=== PATIENT | female | born 2000 ===

== ENCOUNTER → 2024-06-18 09:30 | Outpatient (BNV) | payer BC, SELFPAY | PROVIDERS: Visit Provider Internal Medicine | DX: I47.10 Supraventricular tachycardia, unspecified (principal) | CPT/HCPCS: 93244 ==

== ENCOUNTER → 2024-06-18 10:00 | Outpatient (REF) | payer BC, SELFPAY ==
--- OUTSIDE RECORDS SUMMARY | 2024-06-20 17:47 | XMS_ITS | Encounter Summary ---
Author Organization [facility] Address [address] [place] [phone] Phone Care Team Providers Care Washer Cutter Name Role Phone Ly Soni MD Primary Care Provider + Reason for Visit * Reason Comments Med Refill Encounter Details Date Type Department Care Team ([facility] st Contact Info) Description 12/23/2021 Refill [facility] [address] [address] Ly Soni MD [address] [place] [address] Dysmenorrhea in adolescent; Acne vulgaris; Oral contraceptive pill surveillance Social History Tobacco Use Types Packs/Day Years Used Date Smoking Tobacco: Never Smokeless Tobacco: Never Alcohol Use Standard Drinks/Week Comments No 0 (1 standard drink = 0.6 oz pur e alcohol) Hunger/Food Answer Date Recorded In the last 12 months, did y ou or your family ever eat less than you felt you should because there wasn't enough money for food? No 12/08/2020 Stable Housing Answer Date Recorded Are you worried that in the next 2 months you may not have stable housing? No 12/08/2020 Transportation Concerns Answer Date Rec orded In the last 12 months, have you or your family ever had to go without healthcare because you didn't have a way to get there? No 12/08/2020 Hazards in Home Answer Date Recorded Think about the place you li ve. Do you have problems with any of the following? Pests (mice or roaches), mold, no/not working smoke detectors, water leaks, no window guards. No 2020 Financing Utilities Answer Date Recorde d In the last 12 months, has t he electric, gas, oil, or water company threatened to shut off your services in your home? No 12/08/2020 Safety at Home Answer Date Recorded Are you or your family worried about feeling saf e in your home? No 12/08/2020 Outside Support Answer Date Recorded Do you feel that you need mo re support from other people or programs to help you care for yourself or your family? No 12/08/2020 Understanding Health Concerns Answer Da te Recorded Do you need help understandi ng your or your child's healthcare needs (diagnosis, medications, plan, etc.)? No 12/08/2020 Financing Health Concerns Answer Date R ecorded In the last 12 months, was t here a time when your child needed to see a doctor or get medications or supplies but could not because of cost? No 12/08/2020 Missing School or Work Answer Date Ian rded Did you or your child miss s chool or work because of a health problem that could have been avoided? No 12/08/2020 Comments Unknown Sex and Gender Information Value Date Recorded Sex Assigned at Female 03/01/2023 9:26 AM EST Legal Sex Female 3:13 PM EDT Gender Identity Female 02/02/2023 2:55 PM EDT Sexual Orientation Bisexual 03/01/2023 9: 26 AM EST documented as of this encounter Plan of Treatment Not on file documented as of this encounter Visit Diagnoses Diagnosis Dysmenorrhea in adolescent Acne vulgaris Other acne Oral contraceptive pill surveillance documented in this encounter Care Teams Washer Cutter Relationship Specialty Start Date End Date Ly Soni MD [address] [place] [address] PCP - General 11/15/16 documented as of this encounter
--- OUTSIDE RECORDS SUMMARY | 2024-06-20 17:47 | XMS_ITS | Encounter Summary ---
Author Organization [facility] Address [address] [place] [address] Phone Care Team Providers Care Jewelry Appraiser Name Role Phone Ly Soni MD Primary Care Provider + Reason for Visit * Reason Comments Med Refill Encounter Details Date Type Department Care Team ([facility] st Contact Info) Description 01/18/2022 Refill [facility] [address] [address] Ly Soni MD [address] [place] [address] Dysmenorrhea in adolescent; Acne vulgaris; Oral contraceptive [...] AM EST documented as of this encounter Miscellaneous Notes * Telephone Encounter - Ly Soni MD - 01/18/2022 11:01 AM EDT Was given 84d with 3 refills <1m ago. documented in this encounter Plan of Treatment Not on file documented as of this encounter Visit Diagnoses Diagnosis Dysmenorrhea in adolescent Acne vulgaris Other acne Oral contraceptive pill surveillance documented in this encounter Care Teams Jewelry Appraiser Relationship Specialty Start Date End Date Ly Soni MD [address] [place] [address] PCP - General 11/15/16 documented as of this encounter
--- OUTSIDE RECORDS SUMMARY | 2024-06-20 17:47 | XMS_ITS | Encounter Summary ---
Author Organization [facility] Address [address] [place] [phone] Phone Care Team Providers Care Business Support Specialist Name Role Phone Ly Soni MD Primary Care Provider + Encounter Details Date Type Department Care Team (Late st Contact Info) Description 09/12/2016 Conversion Encounter [facility] [address] [address] Social History Tobacco Use Types Packs/Day Years Used Date Smoking Tobacco: Never Assessed Comments Unknown Sex and Gender Information Value Date Recorded Sex Assigned at Female 03/01/2023 9:26 AM EST Legal Sex Female 3:13 PM EDT Gender Identity Female 02/02/2023 2:55 PM EDT Sexual Orientation Bisexual 03/01/2023 9: 26 AM EST documented as of this encounter Plan of Treatment Not on file documented as of this encounter Visit Diagnoses Not on filedocumented in this encounter Care Teams Business Support Specialist Relationship Specialty Start Date End Date Ly Soni MD [address] [place] [address] PCP - General 11/15/16 documented as of this encounter
--- OUTSIDE RECORDS SUMMARY | 2024-06-20 17:47 | XMS_ITS | Encounter Summary ---
Author Organization [facility] Address [address] [place] [address] Phone Care Team Providers Care Automation Specialist Name Role Phone Ly Soni MD Primary Care Provider + Reason for Visit * Reason Onset Date Comments Med Refill 07/11/2021 Encounter Details Date Type Department Care Team ([facility] st Contact Info) Description 07/11/2021 Refill [facility] [address] [address] Ly Soni MD [address] [place] [address] Dysmenorrhea in adolescent; Acne vulgaris; Oral contraceptive [...] surveillance documented in this encounter Care Teams Automation Specialist Relationship Specialty Start Date End Date Ly Soni MD [address] [place] [phone] PCP - General 11/15/16 documented as of this encounter
--- OUTSIDE RECORDS SUMMARY | 2024-06-20 17:47 | XMS_ITS | Encounter Summary ---
Author Organization [facility] Address [address] [place] [phone] Phone Care Team Providers Care Traffic Signal Repairer Name Role Phone Ly Soni MD Primary Care Provider + Reason for Visit * Reason Comments Med Refill Encounter Details Date Type Department Care Team ([facility] st Contact Info) Description 12/23/2021 Refill [facility] [address] [address] Ly Soni MD [address] [place] [address] Dysmenorrhea in adolescent; Acne vulgaris; Oral contraceptive [...] Telephone Encounter - Ly Soni MD - 12/23/2021 10:34 AM EDT Will give single month Rx. LAst seen w[facility] 08/2020 and no visit scheduled. She is scheduled for a VV ocp check and will schedule WC as soon as possible. documented in this encounter Plan of Treatment Not on file documented as of this encounter Visit Diagnoses Diagnosis Dysmenorrhea in adolescent Acne vulgaris Other acne Oral contraceptive pill surveillance documented in this encounter Care Teams Traffic Signal Repairer Relationship Specialty Start Date End Date Ly Soni MD [address] [place] [address] PCP - General 11/15/16 documented as of this encounter
--- OUTSIDE RECORDS SUMMARY | 2024-06-20 17:47 | XMS_ITS | Encounter Summary ---
Author Organization [facility] Address [address] [place] [address] Phone Care Team Providers Care Engineer Technician Name Role Phone Ly Soni MD Primary Care Provider + Reason for Visit * Reason Comments Med Refill Encounter Details Date Type Department Care Team ([facility] st Contact Info) Description 08/07/2018 Refill [facility] [address] [address] Ly Soni MD [address] [place] [phone] Acne vulgaris Social History Tobacco Use Types Packs/Day Years Used Date Smoking Tobacco: Never Smokeless Tobacco: Never Alcohol Use Standard Drinks/Week Comments No 0 (1 standard drink = 0.6 oz pur e alcohol) Comments Unknown Sex and Gender Information Value Date Recorded Sex Assigned at Female 03/01/2023 9:26 AM EST Legal Sex Female 3:13 PM EDT Gender Identity Female 02/02/2023 2:55 PM EDT Sexual Orientation Bisexual 03/01/2023 9: 26 AM EST documented as of this encounter Miscellaneous Notes * Telephone Encounter - Ly Soni MD - 08/14/2018 10:56 AM EDT Had visit on 08/10. New Rx new OCP given at that time. * Telephone Encounter - Mandy Peres RN - 08/08/2018 11:56 AM EDT Appt scheduled for follow up for this Monday08/10/2018 * Telephone Encounter - Ly Soni MD - 08/07/2018 12:20 PM EDT Patient initially prescribed OCP in April for Acne. Was told to f/u in 3 mos. I have already donea single month refill after the initial 3mos. NEeds f/u at the office prior to wc in 8 weeks. documented in this encounter Plan of Treatment Not on file documented as of this encounter Visit Diagnoses Diagnosis Acne vulgaris Other acne documented in this encounter Care Teams Engineer Technician Relationship Specialty Start Date End Date Ly Soni MD [address] [place] [address] PCP - General 11/15/16 documented as of this encounter
--- OUTSIDE RECORDS SUMMARY | 2024-06-20 17:47 | XMS_ITS | Clinical Summary ---
Author Organization [facility] Address [address] [place] [phone] Phone Care Team Providers Care Warp Scouring Vat Tender Name Role Phone Ly Soni MD Primary Care Provider + Allergies No known active allergies Medications TAZORAC 0.1 % gel KIRK TO ACNE PRONE AREAS QOD. INCREASE TO D TOLERATED. 2 8 Active clindamycin 1 % lotionIndicatio ns:Acne vulgaris Apply topically 2 (two) times a day. Apply once or twice daily to affected areas of face and/or upper back. 60 mL 1 1 Active Active Problems Problem Noted Date Diagnosed Date Adjustment disorder with anxious mood 09/12/2018 Overview (09/12/2018): At risk (introvert, internal/external pressures, high-achieving but stressed about grades). - Considering seeing therapist - f/u in 1-2 months for mood check Assessment & Plan (03/01/2023 11:26 AM EST): Better overall. Still gest stressed with school but also learning some management skills. No therapist. Contracts for safety. PHQ still elevated and difficulty with sleep but not interested in therapist. Discussed calming/sleep winddown skills. Assessment & Plan (10/24/2018 4:27 PM EDT): HAs been doing ok recently, better in summer. High-achieving and takign self- imposed classes this summer. Discussed finding time to do things she likes - art and music. Making time for exercise, and making time for friends. She and mom not interested in therapist at this time but will continue to monitor kamran in the fall. Dysmenorrhea in adolescent 04/20/2018 Overview (04/20/2018): +Fhx endometriosis OCP initiated 04/20/2018 for acne and dysmen Assessment & Plan (05/26/2023 2:12 PM EST): Aygestin 5mg daily has helped, mostly period cessation, occ spotting, no cramping. Continue daily unchanged. F/u at 02/2024 Assessment & Plan (03/01/2023 9:25 AM EST): 05/2022 stopped ocp. Wants to restart something and would prefer not to get periods at all. Discussed aygestrin. F/u 3mos. Assessment & Plan (03/02/2022 10:39 AM EST): Now sprintec regularly no issues. Wants to continue. Assessment & Plan (12/08/2020 2:21 PM EDT): Is better when takes OCP regularly btu forgets frequently. dsicussed alternatives including iud and nexplanon. She wants to go with ocp another few months first. Reminded re daily disoing, setting alarms. Assessment & Plan (10/01/2019 7:35 AM EDT): Significantly better on OCP. No plan to change. Takes daily. Assessment & Plan (10/24/2018 4:26 PM EDT): Ortho tri has helped significantly better than Cryselle. Better periods and improved acne. Continue current ocp. Assessment & Plan (08/10/2018 3:10 PM EDT): Some ipmrovement in cramps on cryselle. Changed to otho tri lo for acne management and improvement in crams. F/u 6wk for acne and can refill at that time if doing well. Acne 05/19/2017 Overview (02/06/2018): Followed by Mandy Mooney at [facility] [place] [phone] 05/2017: RetinA topical qod, doxy 100 bid started. 01/2018: considering accutane. Changing to tazorac gel and off doxycycline. Assessment & Plan (03/01/2023 9:23 AM EST): Currently on BP face wash, cleanser. No more medication. Seems fine. Some stress breakouts. Derm following but no any longer. Assessment & Plan (03/02/2022 10:38 AM EST): Has seen derm. Done with abx and still on spironolactone and ocp which helps. Assessment & Plan (12/08/2020 2:21 PM EDT): Unclear if ocp helps, though seems to somewhat when takes it regularly BP wash is used somewhat regularly. Does pick Added back clinda topical. No oral abx for now F/u I na couple months. Assessment & Plan (10/01/2019 7:36 AM EDT): Using topicalc alexis and retinA. Finds this is good for her. ocp has also helped. Doesn't need refills today. Ok to refill for another ryear as needed. Assessment & Plan (10/24/2018 4:26 PM EDT): Significant imrpovent. Likely OCP has helped the most. Off doxy. Encouraged to continue with BP Wash and topicals. Assessment & Plan (08/10/2018 3:08 PM EDT): Images from the original note were not included. Not using BP Wash daily. REminded that she needs to use it daily. Does use clinda and retinA - will continue this OCP helped a little initially but now worse again today. Will change from Cryselle to Ortho tri-lo. Mom requesting that she go back on doxycycline. New Rx given today x60d max, should be off in summertime F/u 6wk at her [facility] home. Assessment & Plan (04/20/2018 3:01 PM EST): She feels there has been some improvement with more regular use of BP facial wash as well as topical clinda and tazorac. Still some papules, worse with periods. AFter some discussion and h/o dysmenorrhea, decision made to initiate OCP for acne manageemnt. She and mom agree. Continue baseline topical tx and f/u in 3mos. Assessment & Plan (03/09/2018 3:00 PM EST): Images from the original note were not included. Current acne: Increase independence of acne care BP wash BID Clinda topical in am TAzorac topical at night F/u 1m consider OCP or oral doxy. Assessment & Plan (09/08/2017 11:55 AM EDT): Derm: retinA cream at nighttime and doxycycline, oil-free moisturizer. Add BP wash once a day. Has most acne on upper face and also on chest and back. Immunizations Immunization Administration Dates Next Due COVID-19 Pfizer, bivalent, 12+ years 03/02/2022 COVID-19 Pfizer, monovalent, 12+ years 1 COVID-19 Pfizer, seasonal, 12+ years 03/01/2023 DTP 03/17/2008, 5,07/04/2003,05/02,03/04/2003 HPV Vaccine 9 Valent 03/23/2016,09/22/2015,08/26 Hep A 11/21/2005,01/10/2005 Hep B 10/10/2003,01/30/2003,01/01/2003 HiB 07/04/2003,05/02/2003,03/04/2003 Influenza 03/23/2016,02/11/2012,12/17/2010 Influenza, injectable, quadrivalent 03/01/2023 Influenza, injectable, quadr ivalent, preservative free 01/24/2022,01/10/2020,02/01/2019,01/23 Influenza, injectable,darin valent, preservative free, pediatric 01/23/2018 Influenza, intranasal, quadrivalent 01/14/2014 MMR 03/17/2008,04/22/2004 Meningococcal B Trumenba 03/02/2022,12/08/2020 Meningococcal Conj (Menactra) MCV4P 10/01/2019,0 08/26/2014 Pneumococcal Conjugate 13-Valent 004,07/04/2003,05/02/2003,03/04 Polio 03/24/2008, 7,10/10/2003,05/02,03/04/2003 Tdap 09/22/2015 Varicella 05/26/2010,01/07/2004 Social History Tobacco Use Types Packs/Day Years Used Date Smoking Tobacco: Never Smokeless Tobacco: Never Alcohol Use Standard Drinks/Week Comments No 0 (1 standard drink = 0.6 oz pur e alcohol) Hunger/Food Answer Date Recorded In the last 12 months, did y ou or your family ever eat less than you felt you should because there wasn't enough money for food? No 03/01/2023 Stable Housing Answer Date Recorded Are you worried that in the next 2 months you may not have stable housing? No 03/01/2023 Transportation Concerns Answer Date Rec orded In the last 12 months, have you or your family ever had to go without healthcare because you didn't have a way to get there? No 03/01/2023 Hazards in Home Answer Date Recorded Think about the place you li ve. Do you have problems with any of the following? Pests (mice or roaches), mold, no/not working smoke detectors, water leaks, no window guards. No 2022 Financing Utilities Answer Date Recorde d In the last 12 months, has t he electric, gas, oil, or water company threatened to shut off your services in your home? No 03/01/2023 Safety at Home Answer Date Recorded Are you or your family worried about feeling saf e in your home? No 03/01/2023 Outside Support Answer Date Recorded Do you feel that you need mo re support from other people or programs to help you care for yourself or your family? No 03/01/2023 Understanding Health Concerns Answer Da te Recorded Do you need help understandi ng your or your child's healthcare needs (diagnosis, medications, plan, etc.)? No 03/01/2023 Financing Health Concerns Answer Date R ecorded In the last 12 months, was t here a time when your child needed to see a doctor or get medications or supplies but could not because of cost? No 03/01/2023 Missing School or Work Answer Date Ian rded Did you or your child miss s chool or work because of a health problem that could have been avoided? No 03/01/2023 Comments Unknown Sex and Gender Information Value Date Recorded Sex Assigned at Female 03/01/2023 9:26 AM EST Legal Sex Female 3:13 PM EDT Gender Identity Female 02/02/2023 2:55 PM EDT Sexual Orientation Bisexual 03/01/2023 9: 26 AM EST Last Filed Vital Signs Vital Sign Reading Time Taken Comments Blood Pressure 104/62 03/01/2023 9:01 AM EST Pulse 71 10/24/2018 4:06 PM EDT Temperature 36.6 ??C (97.9 ??F) 03/01/2023 9:01 AM ES T Respiratory Rate 20 10/03/2018 7:17 AM EDT Oxygen Saturation 100% 10/24/2018 4:06 PM EDT Inhaled Oxygen Concentration - - Weight 64.7 kg (142 lb 10.2 oz) 03/01/2023 9:01 AM EST Height 164.5 cm (5' 4.75 ) 03/01/2023 9:01 AM ES T Body Mass Index 23.92 03/01/2023 9:01 AM EST Plan of Treatment Health Maintenance Due Date Last Done Comments Chlamydia and Gonorrhea Screening 04/10/2024 03/01/2023, 09/12/2018 DTaP,Tdap,and Td Vaccines (7 - Td or Tdap) 09/21/2025 09/22/2015, 03/17/2008, 04/22/2004, Additional history exists HIB Vaccines Aged Out 07/04/2003, 04/11, 03/04/2003 No longer eligible based on patient's age to complete this topic Hepatitis B Vaccines Completed 10/10/2003, 01/30/2003, 01/01/2003 Pneumococcal Vaccine Completed 01/07/2004, 07/04/2003, 05/02/2003, Additional history exists Hepatitis A Vaccines Completed 11/21/2005, 01/11/20 IPV Vaccines Completed 03/24/2008, 10/2006, 10/10/2003, Additional history exists HPV Vaccines Completed 03/23/2016, 09/08, 08/26/2014 Meningococcal Vaccine Completed 10/01/2019, 015 Men B Vaccine Completed 03/02/2022, 12/08/2020 MMR Vaccines Completed 04/12/2022, 11/2007, 04/22/2004 Varicella Vaccines Completed 04/12/2022, 0 05/26/2010, 01/07/2004 COVID-19 Vaccine Completed 12/27/2023, , 03/02/2022, Additional history exists Influenza Vaccines Completed 12/27/2023, 1 05/01/2022, 01/24/2022, Additional history exists Procedures * Due to [place] [employer] law, this organization might not be sharing sensitive test results. Procedure Name Priority Date/Time Associated Diagnosis Comments CHLAMYDIA AND GONORRHEA, AMPLIFIED Routine 03/01/2023 9:49 AM EST Encounter for screening examination for sexually transmitted disease from Last 3 Months or Most Recently Relevant to Health Maintenance Results * Due to [place] [employer] law, this organization might not be sharing sensitive test results. * Chlamydia and Gonorrhoea, Amplified (Urine) (03/01/2023 9:49 AM EST) Chlamydia, Amplified Negative [facility] Comment: A positive test for N. gonorrhoeae, C. trachomatis or ??T. vaginalis in a prepubertal child should be reported to the Child Protection Program. Additional testing may be required before treatment, and further evaluation may be necessary. This can be facilitated by contacting the Child Protection Program. Neisseria Gonorrhoeae DNA Negative [facility] Comment: Before starting gonorrhea treatment, per [facility] recommendation, swab the same site(s) positive on nucleic acid amplification test for gonorrhea culture. Once cultures have been obtained, treatment should be started before results are known. For more information, see the [facility] on [id number] gonorrhea (https://[facility].Continuent/ld.php?content_id=87802125).A positive test for N. gonorrhoeae, C. trachomatis or ??T. vaginalis in a prepubertal child should be reported to the Child Protection Program. Additional testing may be required before treatment, and further evaluation may be necessary. This can be facilitated by contacting the Child Protection Program. Urine (Urine, Random (not clean void)) 03/01/2023 9:49 AM EST 03/01/2023 3:10 PM EST Narrative [facility] - 03/03/2023 12:06 PM EST Performed by [facility] MedicinePhone - [phone] - [phone] Security Supervisor: Jhonathan Harris MD, PhD(CLIA Certificate: [id number]) Ly Soni MD LAB MICROBIOLOGY - [facility] AL ORDERABLES Final Result Performing Organization Address City/State/[facility] [place] Phone Number [facility] [address] [place] [address], from Last 3 Months or Most Recently Relevant to Health Maintenance Insurance PPO Care Teams Warp Scouring Vat Tender Relationship Specialty Start Date End Date Ly Soni MD [address] [place] [phone] PCP - General 11/15/16
--- OUTSIDE RECORDS SUMMARY | 2024-06-20 17:47 | XMS_ITS | Encounter Summary ---
Author Organization [facility] Address [address] [place] [phone] Phone Care Team Providers Care Rollway Man Name Role Phone Ly Soni MD Primary Care Provider + Reason for Visit * Reason Comments Med Refill Encounter Details Date Type Department Care Team ([facility] st Contact Info) Description 07/10/2021 Refill [facility] [address] [address] Ly Soni MD [address] [place] [phone] Dysmenorrhea in adolescent; Acne vulgaris; Oral contraceptive [...] Telephone Encounter - Ly Soni MD - 07/12/2021 10:26 AM EDT Last rx 09/2019. Due for WC 11/2021. Will refill. documented in this encounter Plan of Treatment Not on file documented as of this encounter Visit Diagnoses Diagnosis Dysmenorrhea in adolescent Acne vulgaris Other acne Oral contraceptive pill surveillance documented in this encounter Care Teams Rollway Man Relationship Specialty Start Date End Date Ly Soni MD [address] [place] [address] PCP - General 11/15/16 documented as of this encounter
--- OUTSIDE RECORDS SUMMARY | 2024-06-20 17:48 | XMS_ITS | Encounter Summary ---
Author Organization [facility] Address [address] [place] [phone] Phone Care Team Providers Care Hosted Services Analyst Name Role Phone Ly Soni MD Primary Care Provider + Reason for Visit * Reason Comments Med Refill Encounter Details Date Type Department Care Team ([facility] st Contact Info) Description 05/22/2022 [facility]ill [facility] [address] [id number] Ly Soni MD [address] [place] [phone] Acne vulgaris; Dysmenorrhea in adolescent Social History Tobacco Use Types Packs/Day Years Used Date Smoking Tobacco: Never Smokeless Tobacco: Never Alcohol Use Standard Drinks/Week Comments No 0 (1 standard drink = 0.6 oz pur e alcohol) Hunger/Food Answer Date Recorded In the last 12 months, did y ou or your family ever eat less than you felt you should because there wasn't enough money for food? No 03/02/2022 Stable Housing Answer Date Recorded Are you worried that in the next 2 months you may not have stable housing? No 03/02/2022 Transportation Concerns Answer Date Rec orded In the last 12 months, have you or your family ever had to go without healthcare because you didn't have a way to get there? No 03/02/2022 Hazards in Home Answer Date Recorded Think about the place you li ve. Do you have problems with any of the following? Pests (mice or roaches), mold, no/not working smoke detectors, water leaks, no window guards. No 2021 Financing Utilities Answer Date Recorde d In the last 12 months, has t he electric, gas, oil, or water company threatened to shut off your services in your home? No 03/02/2022 Safety at Home Answer Date Recorded Are you or your family worried about feeling saf e in your home? No 03/02/2022 Outside Support Answer Date Recorded Do you feel that you need mo re support from other people or programs to help you care for yourself or your family? No 03/02/2022 Understanding Health Concerns Answer Da te Recorded Do you need help understandi ng your or your child's healthcare needs (diagnosis, medications, plan, etc.)? No 03/02/2022 Financing Health Concerns Answer Date R ecorded In the last 12 months, was t here a time when your child needed to see a doctor or get medications or supplies but could not because of cost? No 03/02/2022 Missing School or Work Answer Date Ian rded Did you or your child miss s chool or work because of a health problem that could have been avoided? No 03/02/2022 Comments Unknown Sex and Gender Information Value Date Recorded Sex Assigned at Female 03/01/2023 9:26 AM EST Legal Sex Female 3:13 PM EDT Gender Identity Female 02/02/2023 2:55 PM EDT Sexual Orientation Bisexual 03/01/2023 9: 26 AM EST documented as of this encounter Plan of Treatment Not on file documented as of this encounter Visit Diagnoses Diagnosis Acne vulgaris Other acne Dysmenorrhea in adolescent documented in this encounter Care Teams Hosted Services Analyst Relationship Specialty Start Date End Date Ly Soni MD [address] [place] [id number] PCP - General 11/15/16 documented as of this encounter
--- OUTSIDE RECORDS SUMMARY | 2024-06-20 17:48 | XMS_ITS | Encounter Summary ---
Author Organization [facility] Address [address] [place] [phone] Phone Care Team Providers Care Sheet Metal Helper Name Role Phone Ly Soni MD Primary Care Provider + Reason for Visit * Reason Comments Med Refill Encounter Details Date Type Department Care Team ([facility] st Contact Info) Description 05/31/2023 [facility]ill [facility] [address] [id number] Ly Soni MD [address] [place] [phone] Dysmenorrhea in adolescent Social History Tobacco Use [...] Telephone Encounter - Ly Soni MD - 05/31/2023 9:15 AM EST New rx written 5d ago. documented in this encounter Plan of Treatment Not on file documented as of this encounter Visit Diagnoses Diagnosis Dysmenorrhea in adolescent documented in this encounter Care Teams Sheet Metal Helper Relationship Specialty Start Date End Date Ly Soni MD [address] [place] [phone] PCP - General 11/15/16 documented as of this encounter
== END ==
LOC: HO.CARD 10:00
PROVIDERS: Visit Provider Internal Medicine
DX: R00.1 Bradycardia, unspecified (principal)
CPT/HCPCS: 93242